=== PATIENT | male | born 1980 | race Caucasian/White ===

== ENCOUNTER → 2016-11-04 | Outpatient (CLI) | payer BC ==
[2016-11-06 10:42] LABS: GERM CELLS/ML 0.04 x10(6) (<4.00); GRADE 0.5 (>=2.5); HEAD SHAPE ABNORMAL 15.5 % (()); MIDPIECE ABNORMAL 21.5 % (()); MOTILE/EJACULATE 0.04 x10(6) (>=9.0); MOTILE/mL 0.01 x10(6) (>=6.0); MOTILITY 1 % (>=40); SEMEN CONTAINER TYPE 50 mL Conical (()); SPERM/ML 1.2 x10(6) (>=15.0); STUDY TYPE Semen (()); SUPRAVITAL STAIN 9 % live (>=58)
== END ==
LOC: CLAB 09:36
PROVIDERS: ATTEND Family Medicine
DX: N46.9 Male infertility, unspecified (principal)
CPT/HCPCS: 89310